=== PATIENT | female | born 1975 | race Asian ===

== ENCOUNTER 2020-10-08 23:02 | Emergency (ER) | payer SELFPAY ==
[~2020-10-08] VITALS: Ht 157.5 cm; Wt 59.0 kg
--- NOTE | 2020-10-08 23:19 | NUR ---
MD Kim in room to do MSE.
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
[2020-10-08] MEDS ORDERED: IBUPROFEN 800 MG TABLET PO ONE (23:30)
[2020-10-08] MEDS ORDERED: IBUPROFEN 800 MG TABLET ONE (23:35)
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
[2020-10-09 02:07] VITALS: BP 122/83
== END 2020-10-09 01:53 | disposition home or self-care (01) ==
LOC: ER 23:07
DX: S00.83XA Contusion of other part of head, initial encounter (principal); S00.432A Contusion of left ear, initial encounter; Y04.0XXA Assault by unarmed brawl or fight, initial encounter; Y92.039 Unspecified place in apartment as the place of occurrence of the external cause
CPT/HCPCS: A4663